=== PATIENT | male | born 1960 | race Caucasian/White ===

== ENCOUNTER 2022-06-29 06:11 | Day surgery (SDC) | payer BC, SELFPAY ==
[2022-06-29 06:32] VITALS: BP 165/100; PULSE 79; RESP 16; TEMP 36.6; O2SAT 98
[2022-06-29 06:33] VITALS: BMI 26.4
[2022-06-29] MEDS: LACTATED RINGERS 1000 ML 1,000 ML 100 ML IV (06:55)
[2022-06-29] MEDS: SODIUM CHLORIDE 0.9 % (FLUSH) 10 ML SYRINGE IVF (06:55)
[2022-06-29] MEDS: CEFAZOLIN 2 GM INJ IVP (07:35)
[2022-06-29] MEDS: BUPIVACAINE 0.25% 30 ML INJECTION (07:43)
--- NOTE | 2022-06-29 07:55 | SUR.OPER ---
PATIENT QUESTIONS ANSWERED SATISFACTORILY PREOPERATIVELY.? PATIENT BROUGHT TO OR #1 PER CART.? Patient positioned supine on OR #1 bed.?The perioperative?team supported arms bilaterally on arm boards.? Final approval of positioning by surgeon.?
[2022-06-29 07:58] VITALS: BP 166/94; PULSE 81; RESP 16; TEMP 36.7; O2SAT 96
--- NOTE | 2022-06-29 07:59 | PM.GSPRC ---
Operative Note Date of procedure: 06/29/22 Type of Procedure: Excision of left chest wall mass Procedure Description: After discussing the risks and benefits of the procedure, the patient signed informed consent.? The operative site was marked and the patient was brought to the operating room and placed on the operating table in supine position.? Care was taken to pad the patient's pressure points.?? The patient was then given sedation by anesthesia.?? The operative site was then prepped and draped in the usual sterile fashion.? A time-out was then performed. Local anesthetic of 1% lidocaine and 0.25% bupivacaine was used to infiltrate the area. A 2 cm transverse incision was made directly over the mass. Dissection was carried down through subcutaneous tissue with electrocautery. A well-circumscribed lipomatous mass was encountered in able to be delivered. All surrounding attachments were excised with cautery. The mass measured 1.5 cm at its greatest dimension. It was passed off to the back table to be sent for pathology. Hemostasis was assured with electrocautery. The incision was closed in layers with interrupted 3 0 Vicryl and running 4-0 Monocryl suture. Dermabond was applied over top. ? Sterile dressings were then applied. ? The patient was then woken and transported to the recovery area in stable condition. ? The patient tolerated the procedure well. Findings: Lipoma of the left chest wall. Anesthesia: MAC Surgeon: Sujey Wray MD Estimated blood loss (mL): 2 Condition: stable Disposition: same day
[2022-06-29 08:00] VITALS: BP 145/84; PULSE 78; RESP 16; O2SAT 96
[2022-06-29 08:15] VITALS: BP 153/93; PULSE 75; RESP 16; O2SAT 97
[2022-06-29 08:30] VITALS: BP 148/93; PULSE 77; RESP 16; O2SAT 97
--- NOTE | 2022-06-29 08:43 | W.ANESCHARGE ---
Anesthesia Charges Start Date/Time Anesthesia Start Date: 06/29/22 Anesthesia Start Time: 07:28 Stop Date/Time Anesthesia Stop Date: 06/29/22 Anesthesia Stop Time: 08:02 Summary Emergency: No
--- NOTE | 2022-06-29 09:29 | W.ANESCHARGE ---
Anesthesia Charges Start Date/Time Anesthesia Start Date: 06/29/22 Anesthesia Start Time: 07:28 Stop Date/Time Anesthesia Stop Date: 06/29/22 Anesthesia Stop Time: 08:02 Summary Emergency: No
== END 2022-06-29 09:09 | disposition home or self-care (01) ==
PROVIDERS: Visit Provider Surgery
PROC: (CPT 11402; principal; 2022-06-29 07:30)
DX: D17.1 Benign lipomatous neoplasm of skin and subcutaneous tissue of trunk (principal)
CPT/HCPCS: 11402; 12031; 00400; 88304; J0690; J1100; J2405; J2704; J3010; J3490; J7120